=== PATIENT | female | born 1945 | race Caucasian/White ===

== ENCOUNTER 2023-02-08 10:14 | Outpatient (REF) | payer MEDICARE, SELFPAY ==
[2023-02-09 13:49] LABS: Varicella Zoster DNA Result Negative ((See Note))
== END 2023-02-08 10:15 | disposition home or self-care (01) ==
LOC: LBN 10:14
PROVIDERS: Visit Provider Specialist/Technologist Athletic Trainer
DX: R21 Rash and other nonspecific skin eruption (principal); Z11.59 Encounter for screening for other viral diseases
CPT/HCPCS: 87798